=== PATIENT | male | born 2000 | race Caucasian/White ===

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

== ENCOUNTER 2019-01-16 12:22 | Emergency (ER) | payer MEDICAID | END 2019-01-16 14:29 | disposition home or self-care (01) | LOC: FTE 14:29 | DX: S99.922A Unspecified injury of left foot, initial encounter (principal); X58.XXXA Exposure to other specified factors, initial encounter; Y92.511 Restaurant or cafe as the place of occurrence of the external cause | CPT/HCPCS: 73630; 73630-LT; 99283-25 ==